=== PATIENT | male | born 1980 | race Caucasian/White ===

== ENCOUNTER 2016-07-16 12:22 | Emergency (ER) | payer BC ==
[2016-07-16 13:19] VITALS: BP 147/93; PULSE 66; RESP 16; TEMP 96.8; O2SAT 95
--- NOTE | 2016-07-16 13:32 | UCPHY ---
[id number] for gastritis. Continues to feel lethargi and nauseated. Denies fever, but has felt chilled. Also has some nasal congestion and mild abdominal pain HPI/ROS: CHIEF COMPLAINT: Abdominal discomfort HISTORY OF PRESENT ILLNESS: This is a healthy 36-year-old male with an almost 1 week history of abdominal discomfort and associated nausea. He was seen here on the , 3 days ago, and treated with Zofran. At that time he had significant relief with Zofran and was able to return home. Since returning home he has had continued nausea and abdominal discomfort that he describes as a diffuse feeling of nausea. 2 nights ago he had diffuse abdominal pain and had difficulty finding a comfortable position. He is not currently describing pain, rather a feeling of queasiness. He has been able to drink liquids but has not been eating or drinking very much. He has no appetite. He vomited once during this illness, 2 nights ago. Five nights ago he had 1 episode of diarrhea, none since. He has not moved his bowels for 3 days. He has not had fever but feels cold intermittently. Young daughter ill with abdominal illness last week; she has recovered. No history of abdominal surgery. He denies headache, sore throat, cough, shortness of breath, chest pain, and dysuria. REVIEW OF SYSTEMS: A ten point review of systems was performed and is negative with the exception of the items mentioned in the HPI. Source: Patient Exam Limitations: No limitations - Personal History Tetanus Vaccine Date: within 10 years - Medical/Surgical History Hx Asthma: No Hx Chronic Respiratory Disease: No Hx Diabetes: No Hx Cardiac Disease: No Hx Renal Disease: No Hx Cirrhosis: No Hx Alcoholism: No Hx HIV/AIDS: No Hx Splenectomy or Spleen Trauma: No Other PMH: Denies - Family History Significant Family History: No pertinent family hx - Social History Smoking Status: Never smoked Alcohol Use: Occasionally Additional Social History: He works from home, in forestry. He is with 1 child. - Physical Exam Exam: General Appearance: Alert. Vital signs reviewed. BP 147/93. Eyes: Pupils equal and round, no conjunctival injection, no discharge. Anicteric. ENT, Mouth: Mucous membranes are moist, no oropharyngeal erythema or edema. Neck: No lymphadenopathy, supple. Respiratory: Lungs are clear to auscultation; no wheezes, rales, or rhonchi. Cardiovascular: Regular rate and rhythm; no murmur, rub, or gallop. Gastrointestinal: Abdomen is soft and nontender, no masses or organomegaly, bowel sounds normal. Skin: Warm and dry, no rashes on exposed skin, normal color. Back: Nontender to palpation over the thoracolumbar spine. No CVAT. Extremities: No lower extremity edema, no calf tenderness or swelling. Neurological: Alert and oriented. Moving all four extremities easily and equally. Psychiatric: Normal affect. Constitutional: Initial Vital Signs Temperature (C) 36.0 C 07/16/16 13:17 Heart Rate 66 07/16/16 13:17 Respiratory Rate 16 07/16/16 13:17 Blood Pressure 147/93 H 07/16/16 13:17 O2 Sat (%) 95 07/16/16 13:17 O2 Delivery Mode Room Air Allergies/Adverse Reactions: No Known Allergies Allergy (Verified 07/16/16 13:17) Home Medications: Medication Instructions Recorded Fish Oil 07/13/16 Multivitamin 07/13/16 ZINC 07/13/16 Medical Decision Making ED Course/Re-evaluation: Afebrile, benign abdominal exam. He is not volume depleted on exam. He has not been using the zofran. I recommend that he try doing so. I do not feel that additional testing/imaging is warranted at this time. We discussed the danger signs that should prompt him to be re-evaluated. This is likely a viral intestinal illness. He does not have focal abdominal tenderness and I do not suspect cholecystitis, pancreatitis, appendicitis. There is nothing to suggest diverticulitis. He has not been vomiting and SBO highly unlikely. Departure - Departure Disposition: Home, Routine, Self-Care Clinical Impression: Nausea Condition: Good Instructions: Viral Syndrome (ED) Additional Instructions: I think that you have a viral illness. I recommend using the Zofran, particularly before meals, so that you can increase the amount of nutrition you are getting. Continue to rest as needed. If you develop abdominal pain, especially abdominal pain in 1 area, or fever, any new or concerning symptoms--you should be re-evaluated. Referrals: Cira Chamorro MD [Primary Care Provider] - As per Instructions - PQRS PQRS Measurement: Does not apply
== END 2016-07-16 14:19 | disposition home or self-care (01) ==
LOC: CED 12:22
DX: B34.9 Viral infection, unspecified (principal)
CPT/HCPCS: 99213-PO; G0463-PO